=== PATIENT | male | born 1980 | race Caucasian/White ===

== ENCOUNTER 2017-03-25 19:48 | Emergency (ER) | payer OTHER, BC ==
[2017-03-25] MEDS: KETOROLAC 60 MG INJ IM (22:04)
[2017-03-25] MEDS: ACETAMINOPHEN 325 MG TAB PO (22:04)
== END 2017-03-25 23:59 | disposition home or self-care (01) ==
LOC: FTE 23:59
DX: J06.9 Acute upper respiratory infection, unspecified (principal)
CPT/HCPCS: 87400; 96372; 99284-25